=== PATIENT | female | born 1975 | race American Indian/Alaskan Native ===

== ENCOUNTER 2018-09-04 16:07 | Emergency (ER) | payer BC, MEDICAID ==
[2018-09-04] MEDS ORDERED: ZOFRAN ODT PO ONE (16:43)
--- NOTE | 2018-09-04 16:43 | Emergency Department Report ---
Blank Doc - Documentation Documentation: This is a 43-year-old female that presents with n/v/d. This initial assessment/diagnostic orders/clinical plan/treatment(s) is/are subject to change based on patient's health status, clinical progression and re- assessment by fellow clinical providers in the ED. Further treatment and workup at subsequent clinical providers discretion. Patient/guardians urged not to elope from the ED as their condition may be serious if not clinically assessed and managed. Initial orders include: 1- Patient sent to [facility] for further evaluation and treatment 2- zofran 3- labs
[2018-09-04 17:31] LABS: Alanine Aminotransferase 14 units/L (7-56); Albumin 4.2 g/dL (3.9-5); BUN/Creatinine Ratio 10; Blood Urea Nitrogen 7 mg/dL (7-17); Hemolysis Index 72
[2018-09-04 17:59] LABS: Basophils % (Auto) 0.4 % (0.0-1.8); Hematocrit 41.3 % (30.3-42.9); Hemoglobin 13.8 gm/dl (10.1-14.3); Lymphocytes # (Auto) 1.1 K/mm3 (1.2-5.4); Lymphocytes % (Auto) 9.9 % (13.4-35.0); Mean Corpuscular HGB Conc 33 % (30-34); Mean Corpuscular Volume 89 fl (79-97); Monocytes # (Auto) 0.2 K/mm3 (0.0-0.8); Monocytes % (Auto) 2.1 % (0.0-7.3); Platelet Count 334 K/mm3 (140-440); Red Blood Count 4.64 M/mm3 (3.65-5.03); Red Cell Distribution Width 15.1 % (13.2-15.2)
[2018-09-04] MEDS ORDERED: BENTYL PO ONE (20:05)
[2018-09-04] MEDS ORDERED: PEPCID PO ONE (20:05)
[2018-09-04] MEDS ORDERED: NACL 0.9% 1000 ML 1,000 ML IV ONE (20:12)
[2018-09-04] MEDS ORDERED: BENADRYL IV ONE (20:12)
[2018-09-04] MEDS ORDERED: PEPCID IV ONE (20:12)
[2018-09-04] MEDS ORDERED: REGLAN IV ONE (20:12)
[2018-09-04 22:07] LABS: Bilirubin,Urine NEG (Negative); Blood,Urine MOD (Negative); Color,Urine Yellow (Yellow); Mucus,Urine FEW /HPF; Protein,Urine <15 mg/dL mg/dL (Negative); Urobilinogen,Urine < 2.0 mg/dL (<2.0)
--- NOTE | 2018-09-04 23:02 | Emergency Department Report ---
ED N/V/D HPI - General Chief complaint: Nausea/Vomiting/Diarrhea Stated complaint: VOMITING/DIARRHEA Time Seen by Provider: 09/04/18 16:42 Source: patient Mode of arrival: Ambulatory Limitations: No Limitations - History of Present Illness Initial comments: The patient is a 43-year-old female with no past medical history presents to the ED with a complaint of acute onset persistent intermittent nausea and vomiting with diarrhea and diffuse abdominal pain for the last 12 hours. Patient states that the last meal she ate was from a res taurant 24 hours ago and suspects that these symptoms may have been from food poisoning from the restaurant. Patient states that she's not been able to keep anything down because of persistent nausea and vomiting. Patient denies dizziness, chest pain, shortness of breath, fever, chills, dysuria, urinary frequency and urgency, headache, syncope, vaginal bleeding or change in vision MD complaint: nausea, vomiting, diarrhea, abdominal pain -: Sudden (1), hour(s) (1. This morning accompanied 2) Description of Vomiting: bilious (home) Description of Diarrhea: water ( is looking at his) Associated Abdominal Pain: Yes (di globular ffusely) Location: diffuse Radiation: none Severity: moderate Pain Scale: 3 Quality: aching, dull Consistency: intermittent Improves with: none Worsens with: none Context: possible food poisoning Associated Symptoms: denies other symptoms, loss of appetite, malaise, nausea/vomiting. denies: myalgias, chest pain, cough, diaphoresis, fever/chills, headaches, shortness of breath, syncope - Related Data Previous Rx's Medication Instructions Recorded Last Taken Type levoFLOXacin [Levaquin] 750 mg PO QDAY #14 tablet 03/05/15 Unknown Rx oxyCODONE /ACETAMINOPHEN [Percocet 1 tab PO Q6HR PRN #40 tablet 03/05/15 Unknown Rx 5/325] Dicyclomine [Bentyl] 20 mg PO Q6H PRN #24 tablet 09/04/18 Unknown Rx Diphenoxylate/Atropine [Lomotil] 1 - 2 tab PO Q4H PRN #15 tablet 09/04/18 Unknown Rx Ondansetron [Zofran Odt] 4 mg PO Q6HR #20 tab.rapdis 09/04/18 Unknown Rx Ranitidine HCl [Zantac] 150 mg PO Q12H #20 tablet 09/04/18 Unknown Rx Allergies Allergy/AdvReac Type Severity Reaction Status Date / Time aspirin Allergy Severe Hives Verified 03/03/15 16:41 codeine Allergy Hives Verified 03/03/15 16:41 ibuprofen [From Motrin] Allergy Hives Verified 03/03/15 16:41 latex Allergy Rash Verified 03/03/15 16:41 ED Review of Systems ROS: Stated complaint: VOMITING/DIARRHEA Other details as noted in HPI Constitutional: no symptoms reported. denies: chills, fever Eyes: denies: eye pain, eye discharge, vision change ENT: denies: ear pain, throat pain Respiratory: denies: cough, shortness of breath, wheezing Cardiovascular: denies: chest pain, palpitations Endocrine: no symptoms reported Gastrointestinal: abdominal pain, nausea, vomiting, diarrhea Genitourinary: denies: urgency, dysuria, discharge Musculoskeletal: denies: back pain, joint swelling, arthralgia Skin: denies: rash, lesions Neurological: denies: headache, weakness, paresthesias Psychiatric: denies: anxiety, depression Hematological/Lymphatic: denies: easy bleeding, easy bruising ED Past Medical Hx - Past Medical History Previous Medical History?: No Hx Hypertension: No Hx Congestive Heart Failure: No Hx Diabetes: No Hx Deep Vein Thrombosis: No Hx Renal Disease: No Hx Sickle Cell Disease: No Hx Seizures: No Hx Asthma: No Hx COPD: No Hx HIV: No - Surgical History Past Surgical History?: Yes Additional Surgical History: d&c - Social History Smoking Status: Current Every Day Smoker Substance Use Type: None - Medications Home Medications: Home Medications Medication Instructions Recorded Confirmed Last Taken Type levoFLOXacin [Levaquin] 750 mg PO QDAY #14 tablet 03/05/15 Unknown Rx oxyCODONE /ACETAMINOPHEN [Percocet 1 tab PO Q6HR PRN #40 tablet 03/05/15 Unknown Rx 5/325] Dicyclomine [Bentyl] 20 mg PO Q6H PRN #24 tablet 09/04/18 Unknown Rx Diphenoxylate/Atropine [Lomotil] 1 - 2 tab PO Q4H PRN #15 tablet 09/04/18 Unknown Rx Ondansetron [Zofran Odt] 4 mg PO Q6HR #20 tab.rapdis 09/04/18 Unknown Rx Ranitidine HCl [Zantac] 150 mg PO Q12H #20 tablet 09/04/18 Unknown Rx ED Physical Exam - General Limitations: No Limitations General appearance: alert, in no apparent distress - Head Head exam: Present: atraumatic, normocephalic, normal inspection - Eye Eye exam: Present: normal appearance, PERRL, EOMI Pupils: Present: normal accommodation - ENT ENT exam: Present: normal exam, normal orophraynx, mucous membranes moist, TM's normal bilaterally, normal external ear exam - Neck Neck exam: Present: normal inspection, full ROM - Respiratory Respiratory exam: Present: normal lung sounds bilaterally. Absent: respiratory distress, wheezes, rales, rhonchi, chest wall tenderness, accessory muscle use, decreased breath sounds, prolonged expiratory - Cardiovascular Cardiovascular Exam: Present: regular rate, normal rhythm, normal heart sounds. Absent: systolic murmur, diastolic murmur, rubs, gallop - GI/Abdominal GI/Abdominal exam: Present: soft, normal bowel sounds. Absent: distended, tenderness, guarding, rebound, hyperactive bowel sounds, hypoactive bowel sounds, organomegaly - Rectal Rectal exam: Present: deferred - Extremities Exam Extremities exam: Present: normal inspection, full ROM, normal capillary refill - Back Exam Back exam: Present: normal inspection, full ROM. Absent: CVA tenderness (R), CVA tenderness (L), paraspinal tenderness - Neurological Exam Neurological exam: Present: alert, oriented X3 - Psychiatric Psychiatric exam: Present: normal affect, normal mood - Skin Skin exam: Present: warm, dry, intact, normal color. Absent: rash ED Course Vital Signs 09/04/18 09/04/18 16:42 21:09 Temperature 97.6 F 98.5 F Pulse Rate 68 74 Respiratory 18 16 Rate Blood Pressure 147/65 Blood Pressure 97/49 [Right] O2 Sat by Pulse 100 98 Oximetry - Reevaluation(s) Reevaluation #1: 09/04/18 23:02 Patient is alert and oriented 3 and is not in distress with normal vital signs. Patient was treated in the ED for nausea and vomiting and also given antacids. Patient also received normal saline 1 L IV bolus. Lab test results were reviewed and are unremarkable including urinalysis. On reevaluation, patient's nausea and vomiting as a result, patient's arrival to keep oral fluids in the ED, and patient states that she is feeling much better. Patient discharged home on medications and advised to follow-up with her primary care physician in 2-3 days for reevaluation, and also advised to maintain a clear liquid diet for 12- 24 hours. Patient was advised to returned to the ED immediately if symptoms get worse. ED Medical Decision Making - Lab Data Result diagrams: 09/04/18 16:55 09/04/18 16:55 - Medical Decision Making Patient is alert and oriented 3 and is not in distress with normal vital signs. Patient was treated in the ED for nausea and vomiting and also given antacids. Patient also received normal saline 1 L IV bolus. Lab test results were reviewed and are unremarkable including urinalysis. On reevaluation, patient's nausea and vomiting as a result, patient's arrival to keep oral fluids in the ED, and patient states that she is feeling much better. Patient discharged home on medications and advised to follow-up with her primary care physician in 2-3 days for reevaluation, and also advised to maintain a clear liquid diet for 12- 24 hours. Patient was advised to returned to the ED immediately if symptoms get worse. - Differential Diagnosis viral gastroenteritis; abdominal pain, nausea, vomiting and diarrhea Critical care attestation.: If time is entered above; I have spent that time in minutes in the direct care of this critically ill patient, excluding procedure time. ED Disposition Clinical Impression: Viral gastroenteritis, Nausea, vomiting and diarrhea Disposition: TO HOME OR SELFCARE Is pt being admited?: No Does the pt Need Aspirin: No Condition: Stable Instructions: Acute Nausea and Vomiting (ED), Abdominal Pain (ED), Gastroenteritis (ED) Additional Instructions: MAINTAIN A CLEAR LIQUID DIET FOR 12-24 HOURS; FOLLOW UP WITH YOUR PRIMARY CARE PHYSICIAN IN 2 - 3 DAYS FOR REEVALUATION Prescriptions: Dicyclomine [Bentyl] 20 mg PO Q6H PRN #24 tablet PRN Reason: Pain , Severe (7-10) Diphenoxylate/Atropine [Lomotil] 1 - 2 tab PO Q4H PRN #15 tablet PRN Reason: Diarrhea Ranitidine HCl [Zantac] 150 mg PO Q12H #20 tablet Ondansetron [Zofran Odt] 4 mg PO Q6HR #20 tab.alicia Referrals: [facility] [Outside] - 3-5 Days Forms: Work/School Release Form(ED) Time of Disposition: 23:07 Print Language: SLOVAK
[2018-09-04 23:21] VITALS: BP 103/60
== END 2018-09-04 23:32 | disposition home or self-care (01) ==
LOC: ED 16:07
DX: A08.4 Viral intestinal infection, unspecified (principal); Z88.6 Allergy status to analgesic agent; Z88.5 Allergy status to narcotic agent; Z91.040 Latex allergy status; Z79.899 Other long term (current) drug therapy
CPT/HCPCS: 36415; 80053; 81001; 83690; 84703; 85025; 96361; 96374; 96375; 99283; J1200; J2765; J7030; Q0162

== ENCOUNTER 2018-09-11 02:14 | Emergency (ER) | payer BC ==
[2018-09-11 02:19] VITALS: BP 134/84
[2018-09-11 02:43] LABS: Basophils # (Auto) 0.1 K/mm3 (0.0-0.1); Basophils % (Auto) 1.2 % (0.0-1.8); Eosinophils # (Auto) 0.2 K/mm3 (0.0-0.4); Eosinophils % (Auto) 1.4 % (0.0-4.3); Hematocrit 41.9 % (30.3-42.9); Hemoglobin 13.7 gm/dl (10.1-14.3); Lymphocytes # (Auto) 2.8 K/mm3 (1.2-5.4); Lymphocytes % (Auto) 23.4 % (13.4-35.0); Mean Corpuscular HGB Conc 33 % (30-34); Mean Corpuscular Volume 90 fl (79-97); Monocytes # (Auto) 0.7 K/mm3 (0.0-0.8); Monocytes % (Auto) 5.9 % (0.0-7.3); Platelet Count 357 K/mm3 (140-440); Red Blood Count 4.66 M/mm3 (3.65-5.03); Red Cell Distribution Width 14.9 % (13.2-15.2)
[2018-09-11] MEDS ORDERED: NACL 0.9% 1000 ML 1,000 ML IV ONE (02:51)
[2018-09-11] MEDS ORDERED: ZOFRAN IV ONE (02:51)
[2018-09-11] MEDS ORDERED: MORPHINE IV ONE (02:51)
[2018-09-11 03:26] LABS: Alanine Aminotransferase 29 units/L (7-56); Albumin 4.2 g/dL (3.9-5); BUN/Creatinine Ratio 10; Blood Urea Nitrogen 8 mg/dL (7-17); Calcium 9.4 mg/dL (8.4-10.2); Hemolysis Index 8
--- NOTE | 2018-09-11 04:49 | Cat Scan Report ---
CT ABDOMEN AND PELVIS WITH IV CONTRAST INDICATION: abdominal pain, N/V/D. COMPARISON: None available. TECHNIQUE: All CT scans at this facility use dose modulation, automated exposure control, iterative reconstructi on or weight based dosing, when appropriate, to reduce radiation dose to as low as reasonably achieva ble. FINDINGS: Lung Bases: There is a 3 mm noncalcified nodule in the right middle lobe on axial image 12. Lung base s are otherwise clear. Skeletal System: No acute abnormality. ABDOMEN: Liver: Normal. Gallbladder: There is mild gallbladder wall edema. Gallbladder is otherwise unremarkable. Bile Ducts: Normal. Pancreas: Normal. Spleen: Normal. Adrenals: Normal. Right Kidney: Unremarkable aside from a simple cyst in the lateral cortex. Left Kidney: Normal. Stomach and Bowel: Normal. Lymph Nodes: No significant adenopathy. Aorta: No significant abnormality. Additional Findings: None. PELVIS: Colon: Normal . Urinary Bladder and Distal Ureters: Normal. Appendix: Normal. Lymph Nodes: No significant adenopathy. Additional Findings: Small right ovarian cyst is likely physiologic. Bilateral tubal ligation clips a re incidentally noted. IMPRESSION: 1. There is mild gallbladder wall edema. Gallbladder appears somewhat contracted. No gallstones are seen. No biliary dilatation. 2. 3 mm noncalcified nodule right middle lobe. Given the patient's age, this is of doubtful clinical significance. See below for follow-up recommendations. INCIDENTAL PULMONARY NODULE RECOMMENDATIONS Solid Nodule size <6 mm -- Single or Multiple - Low Risk Patient: No routine follow-up - High Risk Patient: Optional CT at 12 months Note These recommendations do not apply to lung cancer screening, patients with immunosuppression, o r patients with known primary cancer. Note Newly detected indeterminate nodule in persons 35 years of age or older. Persons under the age of 35 should not receive follow-up unless there is a known primary cancer. Low Risk Patient -- minimal or absent history of smoking and of other known risk factors. High Risk Patient -- history of smoking or of other known risk factors. Nodule dimensions are average of long and short axes, rounded to the nearest millimeter. Based on 2017 Fleischner Society Guidelines found in Radiology 2017 284:228-243. [email or web address] Signer Name: Chuck James MD Signed: 09/11/2018 4:45 AM Workstation Name: [email or web address]
[2018-09-11] MEDS ORDERED: REGLAN IV ONE (05:07)
[2018-09-11] MEDS ORDERED: BENADRYL IV ONE (05:07)
[2018-09-11] MEDS ORDERED: K-DUR PO ONE (05:17)
--- NOTE | 2018-09-11 06:41 | Ultrasound Report ---
ULTRASOUND ABDOMEN, LIMITED (RIGHT UPPER QUADRANT) INDICATION: abdominal pain. COMPARISON: CT abdomen earlier the same day FINDINGS: Pancreas: Visualized portion shows no significant abnormality. Liver: Normal. Gallbladder: Gallbladder wall measures 3 mm which is upper limits of normal. The gallbladder is other brid unremarkable. Bile ducts: Normal. Common Bile Duct measures 3 mm. Free fluid: None. Additional Findings: Incidental right renal cyst is noted IMPRESSION: 1. Gallbladder is unremarkable. Signer Name: Chuck James MD Signed: 09/11/2018 6:37 AM Workstation Name: [id number]
--- NOTE | 2018-09-11 07:00 | Emergency Department Report ---
ED Abdominal Pain HPI - General Chief Complaint: Abdominal Pain Stated Complaint: EMESIS/ABD CRAMPING Time Seen by Provider: 09/11/18 02:40 Source: patient, family Mode of arrival: Wheelchair Limitations: No Limitations - History of Present Illness Initial Comments: The patient is a 43-year-old -[place] female with no past medical history presents to the ED with compound of acute onset persistent nausea and vomiting with epigastric pain that it is diffusely for the last 2 hours. Patient states that she has had multiple episodes of nausea and vomiting and that the pain has worsened. Patient denies dizziness, chest pain, shortness of breath, dysuria, urinary frequency and urgency, vaginal bleeding, syncope, headache, sore throat, fever, chills, back pain or change in vision or neck pain. Patient was treated for a similar episode about 5 days ago and he sent home on medication and states that she felt better but ended up taking a lax ative because she suspected that she was constipated. Patient states that soon after she had a bowel movement she started having nausea and vomiting with persistent epigastric pain. MD Complaint: abdominal pain, other (nausea and vomiting) -: Sudden, hour(s) (2) Location: diffuse Radiation: none Migration to: no migration Severity: severe Severity scale (0 -10): 7 Quality: cramping, aching, sharp Consistency: constant Improves With: nothing Worsens With: nothing Associated Symptoms: denies other symptoms, nausea, vomiting, diarrhea, anorexia. denies: fever, chills, constipation, dysuria, hematemesis, melena, hematuria, syncope - Related Data Previous Rx's Medication Instructions Recorded Last Taken Type levoFLOXacin [Levaquin] 750 mg PO QDAY #14 tablet 03/05/15 Unknown Rx oxyCODONE /ACETAMINOPHEN [Percocet 1 tab PO Q6HR PRN #40 tablet 03/05/15 Unknown Rx 5/325] Dicyclomine [Bentyl] 20 mg PO Q6H PRN #24 tablet 09/04/18 Unknown Rx Diphenoxylate/Atropine [Lomotil] 1 - 2 tab PO Q4H PRN #15 tablet 09/04/18 Unknown Rx Ondansetron [Zofran Odt] 4 mg PO Q6HR #20 tab.rapdis 09/04/18 Unknown Rx Ranitidine HCl [Zantac] 150 mg PO Q12H #20 tablet 09/04/18 Unknown Rx Docusate Sodium [Colace CAP] 100 mg PO DAILY #30 capsule 09/11/18 Unknown Rx Ondansetron [Zofran ODT TAB] 8 mg PO Q8HR PRN #21 tab.rapdis 09/11/18 Unknown Rx Ranitidine HCl [Zantac] 150 mg PO Q12H #30 tablet 09/11/18 Unknown Rx traMADol [Ultram] 50 mg PO Q6HR PRN #15 tablet 09/11/18 Unknown Rx Allergies Allergy/AdvReac Type Severity Reaction Status Date / Time aspirin Allergy Severe Hives Verified 03/03/15 16:41 codeine Allergy Hives Verified 03/03/15 16:41 ibuprofen [From Motrin] Allergy Hives Verified 03/03/15 16:41 latex Allergy Rash Verified 03/03/15 16:41 ED Review of Systems ROS: Stated complaint: EMESIS/ABD CRAMPING Other details as noted in HPI Constitutional: denies: chills, fever Eyes: denies: eye pain, eye discharge, vision change ENT: denies: ear pain, throat pain Respiratory: denies: cough, shortness of breath, wheezing Cardiovascular: denies: chest pain, palpitations Endocrine: no symptoms reported Gastrointestinal: abdominal pain, nausea, vomiting. denies: diarrhea Genitourinary: denies: urgency, dysuria, discharge Musculoskeletal: denies: back pain, joint swelling, arthralgia Skin: denies: rash, lesions Neurological: denies: headache, weakness, paresthesias Psychiatric: denies: anxiety, depression Hematological/Lymphatic: denies: easy bleeding, easy bruising ED Past Medical Hx - Past Medical History Previous Medical History?: No Hx Hypertension: No Hx Congestive Heart Failure: No Hx Diabetes: No Hx Deep Vein Thrombosis: No Hx Renal Disease: No Hx Sickle Cell Disease: No Hx Seizures: No Hx Asthma: No Hx COPD: No Hx HIV: No - Surgical History Past Surgical History?: Yes Additional Surgical History: d&c. tubal - Social History Smoking Status: Current Every Day Smoker Substance Use Type: Alcohol - Medications Home Medications: Home Medications Medication Instructions Recorded Confirmed Last Taken Type levoFLOXacin [Levaquin] 750 mg PO QDAY #14 tablet 03/05/15 Unknown Rx oxyCODONE /ACETAMINOPHEN [Percocet 1 tab PO Q6HR PRN #40 tablet 03/05/15 Unknown Rx 5/325] Dicyclomine [Bentyl] 20 mg PO Q6H PRN #24 tablet 09/04/18 Unknown Rx Diphenoxylate/Atropine [Lomotil] 1 - 2 tab PO Q4H PRN #15 tablet 09/04/18 Unknown Rx Ondansetron [Zofran Odt] 4 mg PO Q6HR #20 tab.rapdis 09/04/18 Unknown Rx Ranitidine HCl [Zantac] 150 mg PO Q12H #20 tablet 09/04/18 Unknown Rx Docusate Sodium [Colace CAP] 100 mg PO DAILY #30 capsule 09/11/18 Unknown Rx Ondansetron [Zofran ODT TAB] 8 mg PO Q8HR PRN #21 tab.rapdis 09/11/18 Unknown Rx Ranitidine HCl [Zantac] 150 mg PO Q12H #30 tablet 09/11/18 Unknown Rx traMADol [Ultram] 50 mg PO Q6HR PRN #15 tablet 09/11/18 Unknown Rx ED Physical Exam - General Limitations: No Limitations General appearance: alert, in no apparent distress - Head Head exam: Present: atraumatic, normocephalic, normal inspection - Eye Eye exam: Present: normal appearance, PERRL, EOMI. Absent: scleral icterus Pupils: Present: normal accommodation - ENT ENT exam: Present: normal exam, normal orophraynx, mucous membranes moist, TM's normal bilaterally, normal external ear exam - Neck Neck exam: Present: normal inspection, full ROM - Respiratory Respiratory exam: Present: normal lung sounds bilaterally. Absent: respiratory distress, wheezes, chest wall tenderness, decreased breath sounds - Cardiovascular Cardiovascular Exam: Present: regular rate, normal rhythm, normal heart sounds. Absent: systolic murmur, diastolic murmur, rubs, gallop - GI/Abdominal GI/Abdominal exam: Present: soft, tenderness, guarding, normal bowel sounds. Absent: hyperactive bowel sounds, hypoactive bowel sounds - Rectal Rectal exam: Present: deferred - Extremities Exam Extremities exam: Present: normal inspection, normal capillary refill. Absent: tenderness - Back Exam Back exam: Present: normal inspection, full ROM. Absent: tenderness, CVA tenderness (L), muscle spasm, paraspinal tenderness, vertebral tenderness - Neurological Exam Neurological exam: Present: alert, oriented X3, CN II-XII intact, normal gait, reflexes normal - Psychiatric Psychiatric exam: Present: normal affect, normal mood - Skin Skin exam: Present: warm, dry, intact, normal color. Absent: rash ED Course Vital Signs 09/11/18 02:15 Pulse Rate 77 Respiratory 20 Rate Blood Pressure 134/84 O2 Sat by Pulse 100 Oximetry - Reevaluation(s) Reevaluation #1: 09/11/18 07:03 Patient is alert and oriented 3 and is not in any distress. Patient was treated for pain in the ED and also nausea and vomiting. Patient also received normal saline 1 L IV bolus. Lab test results were reviewed and are significant for acute leukocytosis of 12,100, mild hypokalemia of 3.1 mmol per liter and hyperglycemia 137 mg/dL. Gallbladder ultrasound was unremarkable with normal gallbladder wall thickness. Abdominal pelvis CT scanning with contrast shows no acute pathology in the abdomen and pelvis. On reevaluation, patient nausea and vomiting was well controlled as well as pain. Patient was discharged home and advised to maintain a clear liquid diet for 12-24 hours and to follow-up with her primary care physician in 2-3 days for reevaluation, or return to the ED immediately if symptoms get worse. Patient was discharged home on antiemetics, antacids and pain medications. 09/11/18 07:04 09/11/18 07:05 ED Medical Decision Making - Lab Data Result diagrams: 09/11/18 02:24 09/11/18 02:24 - Radiology Data Radiology results: report reviewed, image reviewed Ordering Physician: ISAIAS KU Date of Service: 09/11/18 Procedure(s): US abdomen limited Accession Number(s): [id number] cc: ISAIAS KU ULTRASOUND ABDOMEN, LIMITED (RIGHT UPPER QUADRANT) INDICATION: abdominal pain. COMPARISON: CT abdomen earlier the same day FINDINGS: Pancreas: Visualized portion shows no significant abnormality. Liver: Normal. Gallbladder: Gallbladder wall measures 3 mm which is upper limits of normal. The gallbladder is otherwise unremarkable. Bile ducts: Normal. Common Bile Duct measures 3 mm. Free fluid: None. Additional Findings: Incidental right renal cyst is noted IMPRESSION: 1. Gallbladder is unremarkable. Signer Name: Chuck James MD Signed: 09/11/2018 6:37 AM Workstation Name: [id number] Transcribed By: VALDEZ Dictated By: Chuck James MD Electronically Authenticated By: Chuck James MD Signed Date/Time: 09/11/[address]: Ordering Physician: ISAIAS KU Date of Service: 09/11/18 Procedure(s): CT abdomen pelvis w con Accession Number(s): [id number] cc: ISAIAS KU CT ABDOMEN AND PELVIS WITH IV CONTRAST INDICATION: abdominal pain, N/V/D. COMPARISON: None available. TECHNIQUE: All CT scans at this facility use dose modulation, automated exposure control, iterative reconstruction or weight based dosing, when appropriate, to reduce radiation dose to as low as reasonably achievable. FINDINGS: Lung Bases: There is a 3 mm noncalcified nodule in the right middle lobe on axial image 12. Lung bases are otherwise clear. Skeletal System: No acute abnormality. ABDOMEN: Liver: Normal. Gallbladder: There is mild gallbladder wall edema. Gallbladder is otherwise unremarkable. Bile Ducts: Normal. Pancreas: Normal. Spleen: Normal. Adrenals: Normal. Right Kidney: Unremarkable aside from a simple cyst in the lateral cortex. Left Kidney: Normal. Stomach and Bowel: Normal. Lymph Nodes: No significant adenopathy. Aorta: No significant abnormality. Additional Findings: None. PELVIS: Colon: Normal . Urinary Bladder and Distal Ureters: Normal. Appendix: Normal. Lymph Nodes: No significant adenopathy. Additional Findings: Small right ovarian cyst is likely physiologic. Bilateral tubal ligation clips are incidentally noted. IMPRESSION: 1. There is mild gallbladder wall edema. Gallbladder appears somewhat contracted. No gallstones are seen. No biliary dilatation. 2. 3 mm noncalcified nodule right middle lobe. Given the patient's age, this is of doubtful clinical significance. See below for follow-up recommendations. INCIDENTAL PULMONARY NODULE RECOMMENDATIONS Solid Nodule size <6 mm -- Single or Multiple - Low Risk Patient: No routine follow-up - High Risk Patient: Optional CT at 12 months Note These recommendations do not apply to lung cancer screening, patients with immunosuppression, or patients with known primary cancer. Note Newly detected indeterminate nodule in persons 35 years of age or older. Persons under the age of 35 should not receive follow-up unless there is a known primary cancer. Low Risk Patient -- minimal or absent history of smoking and of other known risk factors. High Risk Patient -- history of smoking or of other known risk factors. Nodule dimensions are average of long and short axes, rounded to the nearest millimeter. Based on 2017 Fleischner Society Guidelines found in Radiology 2017 284:228-243. [email or web address] Signer Name: Chuck James MD Signed: 09/11/2018 4:45 AM Workstation Name: [id number] Transcribed By: SW Dictated By: Chuck James MD Electronically Authenticated By: Chuck James MD Signed Date/Time: 09/11/18 2555 - Medical Decision Making Patient is alert and oriented 3 and is not in any distress. Patient was treated for pain in the ED and also nausea and vomiting. Patient also received normal saline 1 L IV bolus. Lab test results were reviewed and are significant for acute leukocytosis of 12,100, mild hypokalemia of 3.1 mmol per liter and hyperglycemia 137 mg/dL. Gallbladder ultrasound was unremarkable with normal gallbladder wall thickness. Abdominal pelvis CT scanning with contrast shows no acute pathology in the abdomen and pelvis. On reevaluation, patient nausea and vomiting was well controlled as well as pain. Patient was discharged home and advised to maintain a clear liquid diet for 12-24 hours and to follow-up with her primary care physician in 2-3 days for reevaluation, or return to the ED immediately if symptoms get worse. Patient was discharged home on antiemetics, antacids and pain medications. - Differential Diagnosis abdominal pain, nausea, vomiting, diarrhea, viral gastroenteritis Critical care attestation.: If time is entered above; I have spent that time in minutes in the direct care of this critically ill patient, excluding procedure time. ED Disposition Clinical Impression: Nausea, vomiting and diarrhea, Viral gastroenteritis Abdominal pain Qualifiers: Abdominal location: epigastric Qualified Code(s): R10.13 - Epigastric pain Disposition: DC-01 TO HOME OR SELFCARE Is pt being admited?: No Does the pt Need Aspirin: No Condition: Stable Instructions: Abdominal Pain (ED), Acute Nausea and Vomiting (ED), Gastroenteritis (ED) Additional Instructions: MAINTAIN A CLEAR LIQUID DIET FOR 12-24 HOURS, TAKE MEDICATIONS WITH FOOD, DRINK PLENTY OF FLUIDS AND FOLLOW UP WITH YOUR PRIMARY CARE PHYSICIAN IN 5-7 DAYS FOR REEVALUATION. RETURN TO THE ED IMMEDIATELY IF SYMPTOMS GET WORSE. Prescriptions: Docusate Sodium [Colace CAP] 100 mg PO DAILY #30 capsule traMADol [Ultram] 50 mg PO Q6HR PRN #15 tablet PRN Reason: Pain Ranitidine HCl [Zantac] 150 mg PO Q12H #30 tablet Ondansetron [Zofran ODT TAB] 8 mg PO Q8HR PRN #21 tab.rapdis PRN Reason: Nausea Referrals: MARCOS ASTUDILLO MD [Primary Care Provider] - 3-5 Days Time of Disposition: 07:10 Print Language: [place]
== END 2018-09-11 07:26 | disposition home or self-care (01) ==
LOC: ED 02:14
DX: A08.4 Viral intestinal infection, unspecified (principal); R11.2 Nausea with vomiting, unspecified; F17.200 Nicotine dependence, unspecified, uncomplicated; Z88.6 Allergy status to analgesic agent; Z88.5 Allergy status to narcotic agent; Z91.040 Latex allergy status; Z79.899 Other long term (current) drug therapy
CPT/HCPCS: 36415; 74177; 76705; 80053; 83690; 84703; 85025; 96361; 96374; 96375; 99284; J1200; J2270; J2405; J2765; J7030; Q9967